=== PATIENT | male | born 1965 | race Caucasian/White ===

== ENCOUNTER 2021-07-25 10:24 | Emergency (ER) | payer SELFPAY ==
[~2021-07-25] VITALS: Ht 167.6 cm; Wt 105.2 kg
[2021-07-25 10:34] VITALS: BP 178/117
[2021-07-25 10:37] VITALS: BP 164/95
[2021-07-25] MEDS ORDERED: CEPHALEXIN500 MG PO (10:58)
[2021-07-25] MEDS ORDERED: BACTRIM DS1 TAB PO (10:58)
[2021-07-25 11:01] VITALS: BP 137/82
[2021-07-25 11:17] VITALS: BP 137/82
== END 2021-07-25 11:17 | disposition home or self-care (01) | DRG 603 ==
LOC: ED 10:24
DX: L03.221 Cellulitis of neck (principal); I10 Essential (primary) hypertension; E11.9 Type 2 diabetes mellitus without complications; F17.210 Nicotine dependence, cigarettes, uncomplicated

== ENCOUNTER 2022-03-19 16:23 | Emergency (ER) | payer SELFPAY ==
[~2022-03-19] VITALS: Ht 167.6 cm; Wt 109.0 kg
[2022-03-19] VITALS (8 sets, daily range): BP systolic 135–164; BP diastolic 77–98
[~2022-03-19 16:23] MED LIST: BACTRIM DS1 TAB PO; CEPHALEXIN500 MG PO
[2022-03-19 17:09] LABS: HEMATOCRIT 42.9 % (39.0-50.0); HEMOGLOBIN 14.6 g/dl (14.0-18.0); IMMATURE GRANULOCYTES 0.4 % (0.0-5.0); MEAN CELL VOLUME 82.7 fL CALC (80.0-100.0); MEAN CORPUSCULAR HGB 28.1 pG CALC (26.0-32.0); NEUT# 7.68 thou/uL (1.82-7.42); RED BLOOD COUNT 5.19 mill/uL (4.70-6.10); RED CELL DISTRI WIDTH 12.5 % (11.5-15.5)
[2022-03-19 17:21] LABS: ALBUMIN 3.4 g/dL (3.2-5.0); ALKALINE PHOSPHATASE 233 u/l (38-126); ANION GAP 15 (6-22 (CALC)); BILIRUBIN, TOTAL 0.8 mg/dL (0.0-1.4); BUN 15 mg/dL (9-20); BUN/CREATININE RATIO 18 (12-20 (CALC)); CARBON DIOXIDE 24 mmol/l (22-30); CHLORIDE 93 mmol/l (95-108); CREATININE 0.9 mg/dL (0.7-1.3); GFR FOR AFR.AMER. > 60 ML/MIN (>=60 (CALC)); GFR OTHER RACES > 60 ML/MIN (>=60 (CALC)); POTASSIUM 5.1 mmol/l (3.5-5.1); SGOT/AST 47 u/l (17-59); SODIUM 127 mmol/l (137-146); TOTAL PROTEIN 7.5 g/dL (6.3-8.2)
[2022-03-19 18:25] LABS: URINE BILIRUBIN - DIPSTICK NEGATIVE (NEGATIVE); URINE BLOOD DIPSTICK TRACE-INTACT (NEGATIVE); URINE COLOR YELLOW; URINE GLUCOSE - DIPSTICK >=1000 mg/dL (NEGATIVE); URINE KETONE NEGATIVE (NEGATIVE); URINE LEUK ESTERASE NEGATIVE (NEGATIVE); URINE PROTEIN - DIPSTICK 30 mg/dL (NEG-TRACE); URINE SPECIFIC GRAVITY 1.015; URINE UROBILINOGEN - DIPSTICK 0.2 E.U./dL (0.2)
[2022-03-19 18:32] LABS: URINE NITRITE - DIPSTICK NEGATIVE (Negative); URINE RBC 0-2 RBC/hpf (0-5); URINE WBC 0-2 WBC/hpf (0-5)
[2022-03-19] MEDS ORDERED: VIBRAMYCIN100 M2 PO (19:36)
[2022-03-19] MEDS ORDERED: METFORMIN HCL1000 MG PO (19:36)
[2022-03-19] MEDS ORDERED: KEFLEX500 MG PO (19:38)
== END 2022-03-19 20:22 | disposition left against medical advice (07) | DRG 603 ==
LOC: ED 16:23
PROVIDERS: Nurse Practitioner
DX: L03.116 Cellulitis of left lower limb (principal); L03.115 Cellulitis of right lower limb; B95.0 Streptococcus, group A, as the cause of diseases classified elsewhere; E11.65 Type 2 diabetes mellitus with hyperglycemia; Z53.29 Procedure and treatment not carried out because of patient's decision for other reasons

== ENCOUNTER 2022-06-27 12:09 | Emergency (ER) | payer SELFPAY ==
[2022-06-27] VITALS (14 sets, daily range): BP systolic 122–158; BP diastolic 74–101
[~2022-06-27] VITALS: Ht 167.6 cm; Wt 102.3 kg
[~2022-06-27 12:09] MED LIST changes: +KEFLEX500 MG PO; +METFORMIN HCL1000 MG PO; +VIBRAMYCIN100 M2 PO
[2022-06-27 12:54] LABS: BASO% 0.8 % (0-3); EOS% 4.6 % (0-8); HEMATOCRIT 42.6 % (39.0-50.0); HEMOGLOBIN 14.1 g/dl (14.0-18.0); IMMATURE GRANULOCYTES 0.1 % (0.0-5.0); LYMPH% 27.1 % (15-41); MEAN CELL VOLUME 83.4 fL CALC (80.0-100.0); MEAN CORPUSCULAR HGB 27.6 pG CALC (26.0-32.0); MEAN CORPUSCULAR HGB CONC 33.1 g/dL CAL (32.0-36.0); MONO% 6.5 % (2-13); NEUT# 4.76 thou/uL (1.82-7.42); NEUT% 60.9 % (42-76); RED BLOOD COUNT 5.11 mill/uL (4.70-6.10); RED CELL DISTRI WIDTH 12.5 % (11.5-15.5)
[2022-06-27 13:16] LABS: ALBUMIN 2.9 g/dL (3.2-5.0); ALKALINE PHOSPHATASE 124 u/l (38-126); BUN 10 mg/dL (9-20); BUN/CREATININE RATIO 13 (12-20 (CALC)); CARBON DIOXIDE 27 mmol/l (22-30); CHLORIDE 102 mmol/l (95-108); CREATININE 0.7 mg/dL (0.7-1.3); GFR FOR AFR.AMER. > 60 ML/MIN (>=60 (CALC)); GFR OTHER RACES > 60 ML/MIN (>=60 (CALC)); LIPASE 80 u/l (23-300); SGOT/AST 33 u/l (17-59); SODIUM 133 mmol/l (137-146); TOTAL PROTEIN 6.4 g/dL (6.3-8.2)
[2022-06-27 13:46] LABS: URINE BILIRUBIN - DIPSTICK NEGATIVE (NEGATIVE); URINE BLOOD DIPSTICK SMALL (NEGATIVE); URINE COLOR YELLOW; URINE GLUCOSE - DIPSTICK >=1000 mg/dL (NEGATIVE); URINE KETONE NEGATIVE (NEGATIVE); URINE LEUK ESTERASE NEGATIVE (NEGATIVE); URINE PROTEIN - DIPSTICK 100 mg/dL (NEG-TRACE); URINE SPECIFIC GRAVITY 1.015; URINE UROBILINOGEN - DIPSTICK 0.2 E.U./dL (0.2)
[2022-06-27 13:47] LABS: URINE NITRITE - DIPSTICK NEGATIVE (Negative)
[2022-06-27 13:47] LABS: ANION GAP 8 (6-22 (CALC)); BILIRUBIN, TOTAL 0.1 mg/dL (0.0-1.4); POTASSIUM 3.6 mmol/l (3.5-5.1)
[2022-06-27 13:55] LABS: URINE RBC 0-2 RBC/hpf (0-5)
[2022-06-27] MEDS ORDERED: AMOX/K CLAV875 M1 PO (15:37)
[2022-06-27] MEDS ORDERED: METFORMIN500 M2 PO (15:37)
[2022-06-27] MEDS ORDERED: ZPAK PO (15:37)
== END 2022-06-27 15:58 | disposition home or self-care (01) | DRG 637 ==
LOC: ED 12:09
PROVIDERS: Family Medicine
DX: E11.65 Type 2 diabetes mellitus with hyperglycemia (principal); J18.9 Pneumonia, unspecified organism; I10 Essential (primary) hypertension; Z79.84 Long term (current) use of oral hypoglycemic drugs

== ENCOUNTER 2023-12-29 02:19 | Emergency (ER) | payer SELFPAY ==
[2023-12-29] VITALS (22 sets, daily range): BP systolic 136–174; BP diastolic 77–111
[~2023-12-29] VITALS: Ht 167.6 cm; Wt 109.0 kg
[~2023-12-29 02:19] MED LIST changes: +AMOX/K CLAV875 M1 PO; +METFORMIN500 M2 PO; +ZPAK PO
[2023-12-29] MEDS ORDERED: METOLAZONE 2.5 MG/TAB PO ONE (02:30)
[2023-12-29] MEDS ORDERED: BUMETANIDE 1 MG/4 ML VIAL IV ONE (02:30)
[2023-12-29] MEDS ORDERED: NITROGLYCERIN 2% OINT UD 1 GM/PAK TD ONE (02:30)
[2023-12-29 02:57] LABS: BASO% 0.3 % (0-3); EOS% 6.2 % (0-8); HEMATOCRIT 42.3 % (39.0-50.0); HEMOGLOBIN 13.4 g/dl (14.0-18.0); IMMATURE GRANULOCYTES 0.6 % (0.0-5.0); LYMPH% 16.7 % (15-41); MEAN CELL VOLUME 82.1 fL CALC (80.0-100.0); MEAN CORPUSCULAR HGB CONC 31.7 g/dL CAL (32.0-36.0); MONO% 6.5 % (2-13); NEUT# 7.65 thou/uL (1.82-7.42); NEUT% 69.7 % (42-76); RED BLOOD COUNT 5.15 mill/uL (4.70-6.10); RED CELL DISTRI WIDTH 15.1 % (11.5-15.5)
[2023-12-29 03:07] LABS: ALBUMIN 3.4 g/dL (3.2-5.0); CREATININE 1.1 mg/dL (0.7-1.3); POTASSIUM 3.8 mmol/l (3.5-5.1); TOTAL PROTEIN 7.8 g/dL (6.3-8.2)
[2023-12-29 03:15] LABS: BILIRUBIN, TOTAL 0.5 mg/dL (0.2-1.3)
[2023-12-29 03:18] LABS: ACT PARTIAL THROMBO TIME 29.4 SECONDS (20.0-32.5); INTERNATIONAL NORMALIZED RATIO 1.1 RATIO (0.7-1.3)
[2023-12-29 03:21] LABS: PROTHROMBIN TIME 10.2 SECONDS (9.0-12.5)
[2023-12-29 03:49] LABS: URINE BILIRUBIN - DIPSTICK Negative (NEGATIVE); URINE BLOOD DIPSTICK Moderate (NEGATIVE); URINE GLUCOSE - DIPSTICK 500 mg/dL (NEGATIVE); URINE KETONE Negative (NEGATIVE); URINE LEUK ESTERASE Negative (NEGATIVE); URINE NITRITE - DIPSTICK Negative (Negative); URINE PH 6.5 (4.5-8.0); URINE PROTEIN - DIPSTICK >=300 mg/dL (NEG-TRACE); URINE UROBILINOGEN - DIPSTICK 0.2 E.U./dL (0.2)
[2023-12-29 03:50] LABS: URINE COLOR Yellow
[2023-12-29] MEDS ORDERED: INSULIN REGULAR (HUMAN) 100 UNIT/ML INJ SC ONE (04:35)
[2023-12-29] MEDS ORDERED: METFORMIN HCL500 M1 PO (06:21)
[2023-12-29] MEDS ORDERED: GLIMEPIRIDE4 MG PO (06:21)
[2023-12-29] MEDS ORDERED: ASPIRIN ADULT L81 M2 (06:21)
[2023-12-29] MEDS ORDERED: LOSARTAN POTASS50 MG PO (06:21)
[2023-12-29] MEDS ORDERED: SPIRONOLACT25 MG PO (06:56)
[2023-12-29] MEDS ORDERED: LASIX 20 MG TAB20 MG PO (06:56)
== END 2023-12-29 07:50 | disposition home or self-care (01) | DRG 189 ==
LOC: ED 02:19
PROVIDERS: Family Medicine
DX: J81.1 Chronic pulmonary edema (principal); F15.10 Other stimulant abuse, uncomplicated; F17.200 Nicotine dependence, unspecified, uncomplicated; I87.2 Venous insufficiency (chronic) (peripheral); I10 Essential (primary) hypertension; E11.9 Type 2 diabetes mellitus without complications; I25.10 Atherosclerotic heart disease of native coronary artery without angina pectoris; Z86.73 Personal history of transient ischemic attack (TIA), and cerebral infarction without residual deficits; Z79.84 Long term (current) use of oral hypoglycemic drugs; Z20.822 Contact with and (suspected) exposure to COVID-19
CPT/HCPCS: Q9967